=== PATIENT | male | born 1955 ===

== ENCOUNTER 2021-06-23 13:16 | Inpatient (IN) | payer OTHER ==
[~2021-06-23] VITALS: Ht 180.3 cm; Wt 67.1 kg
[2021-06-23] MEDS ORDERED: ACETAMINOPHEN650 M2 (17:39)
[2021-06-28] MEDS ORDERED: CIPRO500 MG PO (14:02)
[2021-06-28] MEDS ORDERED: FLAGYL500MG PO (14:03)
== END 2021-06-28 16:02 | disposition home or self-care (01) | DRG 389 ==
LOC: ER 13:16 → SEC-K 06-24 08:33 → SURG 06-24 17:11
PROVIDERS: ADMIT Surgery; ATTEND Surgery
DX: K56.690 Other partial intestinal obstruction (principal); K50.918 Crohn's disease, unspecified, with other complication; N17.8 Other acute kidney failure; E86.0 Dehydration; C61 Malignant neoplasm of prostate